=== PATIENT | male | born 1955 | race Two or more races ===

== ENCOUNTER 2024-07-09 11:30 | Outpatient (CLI) | payer OTHER | END 2024-07-09 11:31 | disposition home or self-care (01) | LOC: NUCLEAR 11:30 | PROVIDERS: ATTEND Internal Medicine Sports Medicine | DX: C73 Malignant neoplasm of thyroid gland (principal); E89.0 Postprocedural hypothyroidism | CPT/HCPCS: 78018; A9528 ==

== ENCOUNTER 2024-07-14 12:04 | Outpatient (CLI) | payer OTHER | END 2024-07-14 12:05 | disposition home or self-care (01) | LOC: NUCLEAR 12:04 | PROVIDERS: ATTEND Internal Medicine Sports Medicine | DX: C73 Malignant neoplasm of thyroid gland (principal) | CPT/HCPCS: 78018; A9528 ==